=== PATIENT | female | born 1955 | race Caucasian/White ===

== ENCOUNTER → 2019-03-02 | Outpatient (CLI) | payer OTHER ==
[2019-03-08 15:06] LABS: HPV 16 Negative (Negative); HPV 18 Negative (Negative); HPV OTHER HR TYPES Negative (Negative)
== END | disposition home or self-care (01) ==
LOC: LAB 15:21 → LAB SHORT 15:21
PROVIDERS: Internal Medicine
DX: Z01.419 Encounter for gynecological examination (general) (routine) without abnormal findings (principal)
CPT/HCPCS: 87624; G0123

== ENCOUNTER 2019-07-06 11:25 | Day surgery (SDC) | payer OTHER ==
[~2019-07-06] VITALS: Ht 160 cm; Wt 59.6 kg
--- NOTE | 2019-07-06 13:02 | NUR ---
PT ADMITTED TO [facility]. AGREES WITH PLANNED PROCEDURE. TOLERATED BOWL PREP, STATES LAST BM CLEAR.
== END 2019-07-06 23:52 | disposition home or self-care (01) ==
LOC: ORSCMMR 11:25 → ORD 12:30 → ORSCMMR 13:00 → ORD 13:00 → ORSCMMR 23:52
PROVIDERS: Internal Medicine Gastroenterology
PROC: 0DJD8ZZ Inspection of Lower Intestinal Tract, Via Natural or Artificial Opening Endoscopic (ICD-10-PCS; principal; 2019-07-06 13:00)
DX: Z12.11 Encounter for screening for malignant neoplasm of colon (principal); K64.8 Other hemorrhoids
CPT/HCPCS: J2704; J7120